=== PATIENT | male | born 1990 | race Caucasian/White ===

== ENCOUNTER 2017-04-28 09:06 | Emergency (ER) | payer MEDICAID ==
--- NOTE | 2017-04-28 09:20 | CPEKG ---
Heart Rate: 113 RR Interval: 531 P-R Interval: 136 QRSD Interval: 86 QT Interval: 324 QTC Interval: 445 P [place]: 61 QRS [place]: -25 T Wave [place]: 9 EKG Severity - ABNORMAL ECG - EKG Impression: SINUS TACHYCARDIA EKG Impression: BORDERLINE LEFT AXIS DEVIATION EKG Impression: ST ELEVATION SUGGESTS PERICARDITIS Electronically Signed By: Olga Gregorio 28-Apr-2017 18:39:58
[2017-04-28] MEDS ORDERED: NS 1,000 ML IV ONE (10:11)
[2017-04-28] MEDS ORDERED: IBUPROFEN 600 MG TAB PO ONE (10:13)
--- NOTE | 2017-04-28 10:15 | EDPHY ---
H & P Stated Complaint: Flu sxs x several days;pain w/insp/movement across chest/back Source: Patient Exam Limitations: No limitations - Personal History Current Tetanus Diphtheria and Acellular Pertussis (TDAP): Yes - Medical/Surgical History Other PMH: neg - Social History Smoking Status: Never smoked HPI/ROS: CHIEF COMPLAINT: Chest pain HISTORY OF PRESENT ILLNESS: Patient complains of chest pain for 2 days. This was proceeded by generalized malaise for several days. Chest pain started on Friday, 1 day after arriving to [facility] in [place]. It is described as a pleuritic and inspiratory chest pain. It is moderate to severe. Somewhat better when leaning forward. Some shortness of breath at exertion and minimally at rest. Subjective fever. No chills. No nausea or vomiting. Some neck pain and mild headache. Symptoms are mild Friday morning and have progressively worsened. He originally presented to Urgent Care, and they sent him to our facility for higher level of care. No other associated complaints or modifying factors. REVIEW OF SYSTEMS: Ten systems reviewed and are negative unless otherwise noted in the HPI PAST MEDICAL HISTORY: Seasonal allergies. PAST SURGICAL HISTORY: None SOCIAL HISTORY: Nonsmoker. Occasional alcohol. Admits to occasional cocaine and marijuana use. Denies IV drug use. Lives in [place] and works in [employer] FAMILY HISTORY: Noncontributory EXAMINATION General Appearance: Alert, no distress Head: normocephalic, atraumatic Eyes: Pupils equal and round, no conjunctival pallor or injection ENT, Mouth: Mucous membranes moist Neck: Normal inspection, supple, non-tender Respiratory: Mild tachypnea. Lungs are clear to auscultation. No wheezing, rhonchi or crackles Cardiovascular: Tachycardic rate with regular rhythm. There is a friction rub. There is no murmur. No muffling of heart sounds. No JVD distension Gastrointestinal: Abdomen is soft and nontender Back: non-tender, no bony abnormalities Neurological: GCS 15. A&O, nonfocal, normal gait Skin: Warm and dry, no rash. No petechiae or purpura. No lesions of the nails or palms of hands. Extremities: Nontender, no pedal edema Psychiatric: Mood and affect normal DIFFERENTIAL DIAGNOSES: Including but not limited to pericarditis, PE, pneumonia, pleurisy, influenza MDM: 10:13 a.m. Chest pain with suspected pericarditis by examination history. He is tachycardic and tachypneic but not hypoxic or hypotensive. He does have appearance of a viral illness with preceding cough, malaise, myalgia and subjective fever. Chest x-ray has been ordered. EKG reveals sinus tachycardia with evidence of pericarditis but no ischemia. He is awake alert no acute distress. There is no evidence of tamponade by examination or vital signs. Laboratory studies are pending. I will discuss with attending physician 10:40 a.m. Case discussed with Dr. Gregorio and she agrees with ordering a stat echocardiogram. Patient remains tachycardic but hemodynamically stable. 10:50 a.m. D-dimer is elevated 2.48. I have ordered CT scan of the chest to rule out PE. Clinical suspicion is still higher for pericarditis but this has been ordered given his chest pain, tachycardia elevated D-dimer. I went to the patient's room to notify him of this, but ultrasound is currently at bedside performing the echo. 11:10 a.m. Patient re-evaluated. Tachycardic but hemodynamically stable. Minimal change in his pain from the ibuprofen. 11:42 a.m. The contacted by radiologist Dr. Ham. CT scan does not reveal PE. There is extensive fibrotic, interstitial lung disease consistent with the patient's history of cocaine use. 12:45 p.m. Echocardiogram has been read as normal left ventricle, normal systolic LV function, normal right-sided ventricle, normal right ventricular function. Trivial pericardial effusion. Cardiology will be consulted. 1:00 p.m. Case discussed with cardiology SANTIAGO, Nicci Scott. They will discuss with the attending shipping technician and return my call. 1:10 p.m. Case discussed again with Cardiology SANTIAGO, Nicci Scott . She has discussed the case with Dr. Mckinney. they are comfortable with the patient being discharged home. They are requesting the patient be on high-dose ibuprofen and daily colchicine. They would like him to follow up in their office for further care. 1:20 p.m. I have re-evaluated the patient. I discussed this plan with the patient he is comfortable this plan. In addition, we discussed the need for cocaine cessation. He will be discharged home with prescription for colchicine for 30 days. Instructions to take ibuprofen as above. ED precautions as discussed. He is to follow up with pulmonology regarding the pulmonary fibrosis. Both Dr. Gregorio and I are comfortable with this plan and he is discharged home stable condition. At time of discharge, his tachycardia has resolved. He is not hypoxic. He is not hypotensive. (Elmer Baird) Constitutional: Initial Vital Signs Temperature (C) 36.4 C 04/28/17 09:09 Heart Rate 115 H 04/28/17 09:09 Respiratory Rate 18 04/28/17 09:09 Blood Pressure 126/88 H 04/28/17 09:09 O2 Sat (%) 96 04/28/17 09:09 O2 Delivery Mode Room Air Allergies/Adverse Reactions: No Known Allergies Allergy (Unverified 04/28/17 09:09) Home Medications: Medication Instructions Recorded Colchicine [Colcrys] 0.6 mg PO DAILY #30 tablet 04/28/17 Medical Decision Making - Diagnostics EKG Interpretation: 12 lead EKG is interpreted in Trace master View by emergency department physician. Pericarditis. (Olga Gregorio) ED Course/Re-evaluation: The patient was evaluated and managed by the physician family assistant. I have reviewed this chart and I agree with the findings and plan of care as documented , as indicated by my signature. I am the secondary supervising physician. I reviewed this patient's EKG, laboratory studies, radiographs. I agree with the workup. This case is more complex than the usual case of pericarditis, given the abnormal appearance of this patient's chest x-ray with diffuse ground-glass opacities. He has a history of cocaine abuse. Both the CT angiogram and the echocardiogram provided important information in this situation. (Olga Gregorio) - Data Points Laboratory Results: Laboratory Results 04/28/17 09:50 04/28/17 09:50 Medications Given: Discontinued Medications Colchicine (Colchicine) 0.6 mg PO DAILY NASIR Stop: 10/25/17 13:29 Last Admin: 04/28/17 13:34 Dose: 0.6 mg Sodium Chloride (Ns) 1,000 mls @ 0 mls/hr IV EDNOW ONE; Wide Open PRN Reason: Protocol Stop: 04/28/17 10:12 Last Admin: 04/28/17 10:20 Dose: 1,000 mls Ibuprofen (Motrin) 600 mg PO EDNOW ONE Stop: 04/28/17 10:14 Last Admin: 04/28/17 10:20 Dose: 600 mg Departure - Departure Disposition: Home, Routine, Self-Care Clinical Impression: Acute pericarditis, Pulmonary fibrosis determined by high resolution computed tomography, Chest pain Condition: Good Instructions: Pulmonary Fibrosis (ED), Cocaine Abuse (ED), Acute Pericarditis ( ED) Additional Instructions: 1. Immediate cocaine cessation 2. Ibuprofen 800 mg every 8 hours until seen by Cardiology 3. colchicine as prescribed until seen by Cardiology 4. ED precautions as discussed for fever, worsening pain, exertional pain, shortness of breath Referrals: NONE *PRIMARY CARE P,. [Primary Care Provider] - As per Instructions Jone Mckinney MD [Medical Doctor] - As per Instructions Bennett Joshua MD [Medical Doctor] - As per Instructions Jessie Soriano MD [Medical Doctor] - As per Instructions Prescriptions: Colchicine [Colcrys] 0.6 mg PO DAILY #30 tablet
[2017-04-28 10:17] LABS: % IMMATURE GRANULYOCYTES 0.5 % (0.0-1.1); ABSOLUTE IMMATURE GRANULOCYTES 0.09 10^3/uL (0.00-0.10); ADD DIFF? NO; ADD MORPH? NO; ADD SCAN? NO; ATYPICAL LYMPHOCYTE FLAG 50 (0-99); FRAGMENT RBC FLAG 0 (0-99); HEMATOCRIT 47.4 % (40.0-51.0); HEMOGLOBIN 16.5 g/dL (13.7-17.5); LEFT SHIFT FLG 0 (0-99); LIPEMIA HEMOLYSIS FLAG 90 (0-99); MEAN CELL HEMOGLOBIN 30.1 pg (27.9-34.1); MEAN CELL HEMOGLOBIN CONCENTR. 34.8 g/dL (32.4-36.7); MEAN CELL VOLUME 86.3 fL (81.5-99.8); MEAN PLATELET VOLUME 10.5 fL (8.7-11.7); PLATELET CLUMPS FLAG 10 (0-99); PLATELET COUNT 282 10^3/uL (150-400); RED BLOOD CELL COUNT 5.49 10^6/uL (4.40-6.38); RED CELL DISTRIBUTION WIDTH 12.5 % (11.5-15.2)
[2017-04-28 10:24] LABS: ANION GAP 18 mEq/L (8-16); CALCIUM 9.7 mg/dL (8.5-10.4); CARBON DIOXIDE 21 mEq/l (22-31); CHLORIDE 100 mEq/L (97-110); GLOMERULAR FILTRATION RATE > 60; GLUCOSE 96 mg/dL (70-100); POTASSIUM 4.4 mEq/L (3.5-5.2); SODIUM 139 mEq/L (134-144)
[2017-04-28 10:35] LABS: TROPONIN I < 0.012 ng/mL (0.000-0.034)
[2017-04-28] MEDS ORDERED: IOPAMIDOL (ISOVUE 370) 100 ML BTL IV ONE (11:14)
--- NOTE | 2017-04-28 12:01 | ECHO ---
[email or web address] [address] [address] Main: [phone] Fax: [email or web address] Echocardiogram Name: LINA SIMMONS MR#: [id number] Study Date: 04/28/2017 Study Time: 10:59 AM Date of : 1990 Age: 26 year(s) Height: 182.9 cm (72 in.) Weight: 77.11 kg (170 lb.) BSA: 1.99 m2 Gender: Male Examination: Echo Indication: Chest pain/suspected pericarditis Image Quality: Contrast: Requested by: Elmer Baird BP: / Heart Rate: Rhythm: Indication: Chest pain/suspected pericarditis Procedure Staff Referring Physician: EDUARD Cap Jewel Plate Assembler: Sarina Guzman Reading Physician: Florencia Diaz Conclusions: Normal size left ventricle. Normal global systolic LV function (EF 58 %). All scored wall segments are normal. Normal size right ventricle. Normal RV function. Trivial pericardial effusion There is no previous echocardiogram for comparison. Measurements: Chambers Valvular Assessment AV/MV Valvular Assessment TV/PV Normal Normal Normal Name Value Range Name Value Range Name Value Range Ao Martine (MM): 3.4 cm (2.2 cm-3.7 AV Vmax: 1.12 m/s (1 m/s-1.7 TR Vmax: 2.67 mm/s ( - ) cm) m/s) TR PGmax: 29 mmHg ( - ) IVSd (2D): 0.8 cm (0.6 cm-1.1 AV maxP mmHg ( - ) syst. PAP: 34 mmHg ( - ) cm) AV meanP mmHg ( - ) LVDd (2D): 4.9 cm (4.2 cm-5.9 MV E Vmax: 0.63 cm/s ( - ) cm) MV A Vmax: 0.44 cm/s ( - ) LVDs (2D): 3.4 cm (2.1 cm-4 MV E/A: 1.43 ( - ) cm) LVPWd (2D): 0.8 cm (0.6 cm-1 cm) LVEF (2D): 58 (>=54 %) Visual EF: 60 Continued Measurements: Valvular Assessment AV/MV Valvular Assessment TV/PV Name Value Name Value MV E/E' Septal: 8.60 CVP (est.): 5 Patient: LINA SIMMONS Study Date: 04/28/2017 Page 1 of 2 10:59 AM MV E/E' Lateral: 5.60 Findings: Left Ventricle: Normal size left ventricle. Normal global systolic LV function (EF 58 %). All scored wall segments are normal. Right Ventricle: Normal size right ventricle. Normal RV function. Left Atrium: The left atrium is normal in size. Right Atrium: The right atrium is normal in size. Mitral Valve: The mitral valve is normal in appearance. Trivial mitral valve regurgitation. Aortic Valve: The aortic valve is tri-leaflet and functions normally. There is no aortic valve regurgitation. Tricuspid Valve: The tricuspid valve appears normal. Trivial tricuspid valve regurgitation. Pulmonic Valve: The pulmonic valve is normal in appearance. Great Vessels: Pericardium: Trivial pericardial effusion (No Signature Object) Wall Motion Scores Patient: LINA SIMMONS Study Date: 04/28/2017 Page 2 of 2 10:59 AM [id number]
[2017-04-28] MEDS ORDERED: COLCHICINE 0.6 MG CAP/TAB PO SCH (13:30)
[2017-04-28 13:33] VITALS: PULSE 102; O2SAT 98
[2017-04-28 13:41] VITALS: BP 149/79; RESP 20; TEMP 98.6
== END 2017-04-28 13:41 | disposition home or self-care (01) ==
DX: I30.9 Acute pericarditis, unspecified (principal); J84.10 Pulmonary fibrosis, unspecified; E86.9 Volume depletion, unspecified
CPT/HCPCS: Q9967